=== PATIENT | female | born 1990 | race Two or more races ===

== ENCOUNTER 2024-01-29 18:56 | Emergency (ER) | payer MEDICAID, OTHER ==
[~2024-01-29] VITALS: Ht 177.8 cm; Wt 143.1 kg
[2024-01-29] MEDS ORDERED: PRED20TA2 PO (21:14)
[2024-01-29] MEDS ORDERED: CETITAB29 PO (21:14)
[2024-01-29] MEDS ORDERED: CLIN1CAP70 PO (21:14)
[2024-01-29] MEDS ORDERED: CEPH500C PO (21:14)
[2024-01-29] MEDS: DexAMETHasone SOD PHOS 10MG/1ML VIAL INJ IM ONE (21:27)
[2024-01-29] MEDS: cefTRIAXone 1GM/50ML D5W 50 ML IV ONE (22:00)
[2024-01-29] MEDS: CLINDAMYCIN 900MG IV 50 ML IV ONE (22:01)
[2024-01-29 23:11] VITALS: BP 131/81; PULSE 79; RESP 18; TEMP 98; O2SAT 99
== END 2024-01-29 23:20 | disposition home or self-care (01) ==
LOC: ER 18:56
DX: S40.862A Insect bite (nonvenomous) of left upper arm, initial encounter (principal); W57.XXXA Bitten or stung by nonvenomous insect and other nonvenomous arthropods, initial encounter; Y93.89 Activity, other specified; Y92.34 Swimming pool (public) as the place of occurrence of the external cause; Y99.8 Other external cause status
CPT/HCPCS: 96365; 96368; 96372; 99284; J0696; J1100; J3490